=== PATIENT | female | born 1955 | race Caucasian/White ===

== ENCOUNTER 2020-08-06 06:38 | Day surgery (SDC) | payer MEDICAID ==
[2020-08-02 12:39] LABS: COVID AG,FIA SOURCE NASOPHARYNGEAL
[~2020-08-06] VITALS: Ht 149.9 cm; Wt 77.3 kg
[~2020-08-06 06:38] MED LIST: ASPI-1444 PO; ATOR-2 PO; HYDR12.54 PO; LOSA100T58 PO; METF-960 PO; SODIUM CHLORIDE 0.9% 1,000 ML IV ONE; SODIUM CHLORIDE 0.9% 1,000 ML ONE
[2020-08-06] MEDS ORDERED: FentaNYL CITRATE PF 100 MCG/2 ML VIAL ONE (06:59)
[2020-08-06] MEDS ORDERED: MIDAZOLAM HCL 2 MG/2 ML VIAL ONE (06:59)
[2020-08-06 07:33] LABS: GLUCOMETER DEV NAME(LOC) SDS.; GLUCOSE,POINT OF CARE 163 MG/DL (70-110)
[2020-08-06] MEDS ORDERED: MethylPREDNISolone SOD SUCC 125 MG/2 ML VIAL IVP ONE (09:00)
[2020-08-06] MEDS ORDERED: MethylPREDNISolone SOD SUCC 125 MG/2 ML VIAL ONE (09:28)
[2020-08-06] MEDS ORDERED: ALBUTEROL SULFATE 2.5 MG/0.5 ML NEB SOLUTION NEB ONE (16:29)
[2020-08-06] MEDS ORDERED: LIDOCAINE 2% 30 ML JELLY ONE (16:29)
[2020-08-06] MEDS ORDERED: BENZOCAINE 20% 50 MCG/SPRAY 57 GM ONE (16:29)
[2020-08-06] MEDS ORDERED: OXYGEN THERAPY IH SCH (20:00)
== END 2020-08-06 10:35 | disposition home or self-care (01) ==
LOC: SURGERY 06:38
PROVIDERS: ATTEND Internal Medicine Critical Care Medicine
DX: J38.4 Edema of larynx (principal); B37.0 Candidal stomatitis
CPT/HCPCS: 31623; 31624; 71045; 82962; 87015; 87070; 87101; 87205; 87206; 87220; 87426; 88108; 88184; 88185; 88312; C9803; J2250; J2930; J3010; J7030; J7613